=== PATIENT | male | born 1990 | race African-American/Black ===

== ENCOUNTER 2024-10-11 12:04 | Emergency (ER) | payer SELFPAY ==
[~2024-10-11] VITALS: Ht 177.8 cm; Wt 72.0 kg
[2024-10-11 12:12] VITALS: BP 131/69; PULSE 96; RESP 16; TEMP 37; O2SAT 100
== END 2024-10-11 14:28 | disposition left against medical advice (07) ==
LOC: ER 13:20
DX: F41.9 Anxiety disorder, unspecified (principal); Z53.21 Procedure and treatment not carried out due to patient leaving prior to being seen by health care provider